=== PATIENT | female | born 1995 | race Caucasian/White ===

== ENCOUNTER 2019-06-13 20:38 | Emergency (ER) | payer SELFPAY ==
[~2019-06-13] VITALS: Ht 157.5 cm; Wt 63.7 kg
[2019-06-13 20:59] VITALS: Ht 157.5 cm; Wt 63.7 kg
[2019-06-13 23:02] VITALS: BP 110/71
== END 2019-06-13 23:02 | disposition home or self-care (01) ==
LOC: ED 20:38
DX: S46.912A Strain of unspecified muscle, fascia and tendon at shoulder and upper arm level, left arm, initial encounter (principal); V49.49XA Driver injured in collision with other motor vehicles in traffic accident, initial encounter; Y93.I9 Activity, other involving external motion; Y92.413 State road as the place of occurrence of the external cause; Y99.8 Other external cause status